=== PATIENT | female | born 1990 | race Caucasian/White ===

== ENCOUNTER → 2021-07-22 10:47 | Outpatient (CLI) | payer OTHER, SELFPAY ==
[2021-07-22 11:45] LABS: COVID19 -Nasal RAPID Negative (Negative)
== END ==
PROVIDERS: PCP Family Medicine; Visit Provider Physician Assistant
DX: Z20.822 Contact with and (suspected) exposure to COVID-19 (principal)
CPT/HCPCS: 87635

== ENCOUNTER 2025-02-09 03:17 | Emergency (ER) | payer OTHER, SELFPAY ==
[2025-02-09 03:27] VITALS: BP 124/96; PULSE 59; RESP 14; TEMP 36.6; O2SAT 100; BMI 21.6
--- NOTE | 2025-02-09 03:27 | DI.CT.S_ITS ---
PROCEDURE: CT CERVICAL SPINE WO CON INDICATIONS: neck pain s/p headstrike TECHNIQUE: Noncontrast 3 mm thick sections acquired from the skull base to the T4 level. Sagittal and coronal reformats were then constructed. For radiation dose reduction, the following was used: automated exposure control, adjustment of mA and/or kV according to patient size. COMPARISON: None. FINDINGS: Image quality: Excellent. Bones: No fractures or dislocations. Visualized superior ribs are intact. Soft tissues: Prevertebral soft tissues are normal in thickness. No paravertebral hematomas. No apical pneumothoraces. IMPRESSION: No CT evidence of acute cervical spine trauma. Final interpretation is concordant with preliminary report. Dictated by: Sendy Saeed M.D. on 02/09/2025 at 6:30 Approved by: Sendy Saeed M.D. on 02/09/2025 at 6:32
--- NOTE | 2025-02-09 03:27 | DI.CT.S_ITS ---
PROCEDURE: CT HEAD/BRAIN WO CON INDICATIONS: headstrike TECHNIQUE: Noncontrast 4.5 mm thick angled axial sections acquired from the foramen magnum to the vertex, with coronal and sagittal reformats. For radiation dose reduction, the following was used: automated exposure control, adjustment of mA and/or kV according to patient size. COMPARISON: None. FINDINGS: Image quality: Diagnostic. CSF spaces: Basal cisterns are patent. No extra-axial fluid collections. Ventricles are normal in size and shape. Brain: No midline shift. No intracranial mass effect or hemorrhage. Dunn- white matter interface is normal. Skull and face: Calvarium and visualized facial bones are intact, without suspicious lesions. Sinuses: Visualized sinuses and mastoids are clear. IMPRESSION: 1. No CT evidence of acute intracranial trauma. 2. No significant soft tissue injury or underlying fracture. 3. Final interpretation is concordant with preliminary report. Dictated by: Sendy Saeed M.D. on 02/09/2025 at 6:29 Approved by: Sendy Saeed M.D. on 02/09/2025 at 6:30
[2025-02-09] MEDS: DEXAMETHASONE 10 MG/ML VIAL IM (03:33)
--- NOTE | 2025-02-09 03:34 | ED_ITS ---
HPI - Head Injury General Chief complaint: Head Injury Stated complaint: Neck Injury Time Seen by Provider: 02/09/25 03:23 History of Present Illness HPI Narrative: Patient is a 34-year-old female without any significant past medical history comes into the ED from home for evaluation of head pain neck pain, she states that at approximately 4:00 p.m. yesterday she hit the top of her head against a roof of a car. No LOC states that she was having some mild pain to her head and neck but denies any other injuries. At time of evaluation patient only complaining of mild neck pain but also complaining of some numbness to the left side of her head. She denies any numbness weakness tingling to lower extremities. Patient was able to stand bear weight ambulate unassisted here in the emergency department. He is not on any blood thinners denies any other complaints at this time. Related Data Home Medications ?Medication ?Instructions ?Recorded ?Confirmed No Known Home Medications 07/22/21 Allergies Allergy/AdvReac Type Severity Reaction Status Date / Time No Known Drug Allergies Allergy Verified 02/09/25 03:27 Review of Systems Review of Systems Narrative: General: Positive head strike Denies fever, chills, weight loss HEENT: Positive neck pain, Denies headache, eye drainage, eye irritation, sore throat, voice change Cardiovascular: Denies any chest pain, palpitations, tachycardia Respiratory: Denies any shortness of breath, cough, wheeze, stridor GI/: Denies any abdominal pain, nausea, vomiting, diarrhea, bright red blood per rectum, melanotic stools, urinary frequency, urinary retention, dysuria, hematuria MSK: Denies any joint pain, muscle pains, swelling Skin: Denies any rashes, lesions, discoloration Neuro: Denies any headache, lightheadedness, dizziness, fainting, weakness Psych: Denies SI/HI Patient History Social History Smoking Status: Never smoker Exam Narrative Exam Narrative: General: Cooperative, well-developed, not in acute distress HEENT: Normocephalic, atraumatic, PERRLA, normal sclera, eyelids normal Neck: Active full range of motion, atraumatic, there is no tenderness to palpation of midline cervical spine no real tenderness to palpation of paraspinal muscles, Chest: Normal to inspection, negative crepitus, no overlying erythema ecchym osis Respiratory: Normal respiratory effort, not in acute respiratory distress, clear to auscultation bilaterally negative cough, wheeze, tachypnea, rhonchi, rales Cardiology: Regular rate rhythm negative gallop, murmur, rubs GI/: No tenderness to palpation, soft, non rigid, normal to inspection, exam deferred MSK: Full active range of motion in all 4 extremities, atraumatic, no tendernes s to palpation of any bony prominences, patient is neurovascularly intact bilateral upper and lower extremities, was able to stand bear weight ambulate unassisted here in the emergency department. Skin: No rashes or lesions noted Neuro: Alert awake oriented x3, moves all 4 extremities spontaneously, cranial nerves intact, able to answer all questions appropriately follows commands appropriately Psych: Cooperative, negative suicidal or homicidal ideations Initial Vital Signs Initial Vital Signs: Vital Signs Temperature 97.8 F 02/09/25 03:27 Pulse Rate 59 L 02/09/25 03:27 Respiratory Rate 14 02/09/25 03:27 Blood Pressure 124/96 H 02/09/25 03:27 Pulse Oximetry 100 02/09/25 03:27 Oxygen Delivery Method Room Air 02/09/25 03:27 Course Orders Ordered: ED Orders 02/09/25 03:27 CT cervical spine wo con Stat CT head/brain wo con Stat Discontinued Medications Dexamethasone (Dexamethasone 10 Mg/Ml Vial) 10 mg IM NOW ONE Stop: 02/09/25 03:29 Last Admin: 02/09/25 03:33 Dose: 10 mg Documented By: NURIA Diazepam (Diazepam 2 Mg Tablet) 2 mg PO NOW ONE Stop: 02/09/25 03:29 Last Admin: 02/09/25 03:34 Dose: 2 mg Documented By: NURIA Vital Signs Vital signs: Vital Signs - 8 hr 02/09/25 03:27 Temperature 97.8 F Pulse Rate 59 L Respiratory Rate 14 Blood Pressure 124/96 H Pulse Oximetry 100 Oxygen Delivery Method Room Air MDM - Head Injury Differential Diagnosis Differential diagnosis: Likely other (Closed head injury, concussion, cervical neck strain, cervical neck fracture, scalp hematoma) Imaging Data CT scan - head: Radiologist's Impression: Preliminary read showing no acute traumatic injury CT - cervical spine: Radiologist's Impression: Preliminary read showing no acute traumatic injury [facility] Narrative Medical decision making narrative: Patient is a 34-year-old female without any significant past medical history presents to the emergency department from home for evaluation of neck pain as well as numbness tingling sensation to the top of her left scalp, she states that approximately 12 hours ago she hit her head on top of a roof of a car, no LOC states that pain was okay but started feeling like she was having some tingling numbness sensation to the left side of her scalp, on exam she is neurovascularly intact exam of the scalp does not show any hematoma no abrasion laceration. She is not having any other complaints at this time, she was able to stand bear weight ambulate unassisted here in the emergency department. Patient had CT scan of her head and neck Discharge Plan Departure Patient Disposition: Home Clinical Impression: Closed head injury, Sprain of cervical neck, Concussion without loss of consciousness Activity Restrictions/Additional Instructions: Please follow up with your primary care doctor Please read the discharge instructions sheet carefully and bring all papers to all doctor follow-up visits, as it may contain information that your doctor may want to see. Disease processes change and evolve, if your symptoms worsen or if you develop any new symptoms that are concerning to you please return for evaluation. Your evaluation today does not show any evidence of any life- threatening/serious illnesses requiring admission to the hospital or surgery. Please follow-up with your doctor for re-evaluation in approximately 1 day. Seek immediate medical attention for any worrisome symptoms. *If you do not have a primary care provider please contact the [facility] Resource line at [phone]. They will ask some questions about your medical history and help get you set up with a doctor in the community. Prescriptions: No Action No Known Home Medications Referrals: Eamon Haider MD [Primary Care Provider, Family Practice] Stand Alone Forms: Patient Portal/API
[2025-02-09 04:25] VITALS: BP 120/60; PULSE 62; RESP 16; O2SAT 100
== END 2025-02-09 04:29 | disposition home or self-care (01) ==
PROVIDERS: Emergency Provider Student in an Organized Health Care Education/Training Program; PCP Family Medicine
DX: S06.0X0A Concussion without loss of consciousness, initial encounter (principal); S13.9XXA Sprain of joints and ligaments of unspecified parts of neck, initial encounter; R20.0 Anesthesia of skin; R20.2 Paresthesia of skin; W22.8XXA Striking against or struck by other objects, initial encounter
CPT/HCPCS: 70450; 72125; 96372; 99283; 99284; J1100